=== PATIENT | male | born 1995 | race Caucasian/White ===

== ENCOUNTER 2017-02-18 09:37 | Emergency (ER) | payer MEDICAID ==
[~2017-02-18] VITALS: Ht 180.3 cm; Wt 66.0 kg
[~2017-02-18 09:37] MED LIST: CAT1P TOP; ONDA8TAB13 PO
[2017-02-18 09:40] VITALS: BP 108/61
== END 2017-02-18 10:27 | disposition home or self-care (01) ==
LOC: ER 09:38
DX: G83.9 Paralytic syndrome, unspecified (principal); F15.10 Other stimulant abuse, uncomplicated; Z88.2 Allergy status to sulfonamides
CPT/HCPCS: 29125; 99283

== ENCOUNTER → 2017-02-27 | Emergency (ER) | payer MEDICAID ==
[~2017-02-27] VITALS: Ht 180.3 cm; Wt 69.0 kg
[2017-02-27 14:55] VITALS: BP 124/76
== END | disposition home or self-care (01) ==
LOC: ER 13:17
DX: G56.32 Lesion of radial nerve, left upper limb (principal); F15.10 Other stimulant abuse, uncomplicated; F11.10 Opioid abuse, uncomplicated; Z88.2 Allergy status to sulfonamides
CPT/HCPCS: 99283

== ENCOUNTER 2017-10-07 08:20 | Emergency (ER) | payer MEDICAID ==
[~2017-10-07] VITALS: Ht 180.3 cm; Wt 64.0 kg
[2017-10-07] MEDS ORDERED: CefTRIAXone 1000mg IM Kit (w/lidocaine diluent) IM ONE (08:45)
[2017-10-07] MEDS ORDERED: CEPH500C5 PO (09:01)
[2017-10-07] MEDS ORDERED: DOXY100C43 PO (09:02)
[2017-10-07] MEDS ORDERED: TETanus/Pertussis (Acell)/Diphther VAC/PF (Tdap-Adult) 0.5ml syringe IM ONE (09:30)
[2017-10-07 09:38] VITALS: BP 146/65
== END 2017-10-07 09:40 | disposition home or self-care (01) ==
LOC: ER 08:21
DX: L03.211 Cellulitis of face (principal); F15.10 Other stimulant abuse, uncomplicated; F11.10 Opioid abuse, uncomplicated; Z88.2 Allergy status to sulfonamides; Z79.899 Other long term (current) drug therapy
CPT/HCPCS: 90471; 90715; 96372; 99284; J0696